=== PATIENT | female | born 1950 | race Caucasian/White ===

== ENCOUNTER 2021-11-27 14:56 | Emergency (ER) | payer MEDICARE, BC ==
[~2021-11-27] VITALS: Ht 152.4 cm; Wt 96.8 kg
[~2021-11-27 14:56] MED LIST: ACET-1008 PO; ACYC-129 PO; CALC-1215 PO; CETI-194 PO; CHOL100046 PO; CITA10TA93 PO; DET2LAC PO; MELA3TAB39 PO; METO-539 PO; SYN0.1T PO; ZOLP5TAB8 PO
[2021-11-27 19:28] VITALS: BP 133/83
== END 2021-11-27 21:29 | disposition home or self-care (01) ==
LOC: ER 14:56
DX: M79.602 Pain in left arm (principal); Z86.2 Personal history of diseases of the blood and blood-forming organs and certain disorders involving the immune mechanism; Z88.0 Allergy status to penicillin; Z88.2 Allergy status to sulfonamides; Z88.8 Allergy status to other drugs, medicaments and biological substances; Z79.2 Long term (current) use of antibiotics; Z79.899 Other long term (current) drug therapy; W19.XXXA Unspecified fall, initial encounter; Y93.89 Activity, other specified; Y92.89 Other specified places as the place of occurrence of the external cause; Y99.8 Other external cause status
CPT/HCPCS: 73090; 99284